=== PATIENT | female | born 1995 ===

== ENCOUNTER 2021-06-08 15:47 | Emergency (ER) | payer MEDICAID ==
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
[2021-06-08 20:22] VITALS: BP 110/64
== END 2021-06-08 20:19 | disposition home or self-care (01) ==
LOC: ED 15:47
DX: O26.892 Other specified pregnancy related conditions, second trimester (principal); R07.89 Other chest pain; Z3A.19 19 weeks gestation of pregnancy; V49.40XA Driver injured in collision with unspecified motor vehicles in traffic accident, initial encounter; Y93.89 Activity, other specified; Y92.89 Other specified places as the place of occurrence of the external cause; Y99.8 Other external cause status
CPT/HCPCS: 99282